=== PATIENT | male | born 1965 | race Caucasian/White ===

== ENCOUNTER 2021-10-31 10:29 | Emergency (ER) | payer SELFPAY ==
[~2021-10-31] VITALS: Ht 165.1 cm; Wt 83.9 kg
[2021-10-31 10:37] VITALS: BP 124/77
[2021-10-31] MEDS ORDERED: KETOROLAC 30 MG/ML VIAL IM ONE (11:15)
--- NOTE | 2021-10-31 11:15 | NUR ---
56 Y/O MALE BIB SELF FOR C/O LOWER BACK PAIN X 2 WEEKS. AOX4, ABLE TO MAKE NEEDS KNOWN. DENIES ANY TRAUMA TO BACK AT THIS TIME. NO BRUISING OR ANY DEFORMITIES NOTED. AMBULATES WITHOUT ASSISTANCE AND STEADILY. BACK IS NON-TENDER TO TOUCH AT THIS TIME. DENIES N/V/D/CP AT THIS TIME. PMH: DENIES ALLERGIES: DENIES HOME MEDS: DENIES
--- NOTE | 2021-10-31 12:25 | NUR ---
URINE DIP RESULTS SHOWN TO RENE AT THIS TIME.
--- NOTE | 2021-10-31 12:27 | NUR ---
RENE AT BEDSIDE TO CONSULT WITH PT AT THIS TIME.
[2021-10-31] MEDS ORDERED: IBUP-2213 PO (12:32)
[2021-10-31] MEDS ORDERED: LID5T TP (12:32)
[2021-10-31] MEDS ORDERED: ACET-8386 PO (12:32)
[2021-10-31 12:38] VITALS: BP 124/77
--- NOTE | 2021-10-31 12:38 | NUR ---
Patient discharged with v/s stable. Written and verbal after care instructions given and explained with teachback. Patient alert, oriented and verbalized understanding of instructions. Ambulatory with steady gait. All questions addressed prior to discharge. ID band removed. Patient advised to follow up with PMD. Rx of LIDODERM 5% PATCH/IBUPROFEN/HYDROCODONE/ACETAMINOPHEN given. Patient educated on indication of medication including possible reaction and side effects. Opportunity to ask questions provided and answered.
== END 2021-10-31 12:38 | disposition home or self-care (01) ==
LOC: MED 10:29
DX: S39.012A Strain of muscle, fascia and tendon of lower back, initial encounter (principal); R03.0 Elevated blood-pressure reading, without diagnosis of hypertension; Z79.899 Other long term (current) drug therapy; X58.XXXA Exposure to other specified factors, initial encounter; Y93.89 Activity, other specified; Y92.89 Other specified places as the place of occurrence of the external cause; Y99.8 Other external cause status
CPT/HCPCS: 72100; 81002; 96372; 99283; J1885

== ENCOUNTER 2021-11-11 08:00 | Emergency (ER) | payer MEDICAID ==
[~2021-11-11] VITALS: Ht 167.6 cm; Wt 84.4 kg
[~2021-11-11 08:00] MED LIST: ACET-8386 PO; IBUP-2213 PO; LID5T TP
[2021-11-11 08:10] VITALS: BP 159/62
--- NOTE | 2021-11-11 08:15 | NUR ---
56 y/o Male ambulatyed to bed 3, BIB self for sharp left testicular pain radiating to abd. c/o dysuria. Denies blood in urine. Denies recent trauma to testicular region. 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 Pmhx: chronic lower back pain Allergies: denies Home meds: ciprofloxacin
--- NOTE | 2021-11-11 08:20 | NUR ---
Pt ambulated to room 3
[2021-11-11 09:30] LABS: BASOPHILS % (AUTO) 0.6 % (0.0-2.0); EOSINOPHILS # (AUTO) 0.1 K/uL (0-0.4); EOSINOPHILS % (AUTO) 1.2 % (0.0-4.0); HEMOGLOBIN 14.8 g/dL (12.0-18.0); LYMPHOCYTES # (AUTO) 2.2 K/uL (2.0-11.5); LYMPHOCYTES % (AUTO) 38.7 % (20.5-51.1); MEAN CORPUSCULAR HEMOGLOBIN 32 pg (27-31); MEAN CORPUSCULAR HGB CONC 34 g/dL (33-37); MEAN CORPUSCULAR VOLUME 92.6 fL (80-94); MONOCYTES # (AUTO) 0.5 K/uL (0.8-1.0); MONOCYTES % (AUTO) 9.3 % (1.7-9.3); NEUTROPHILS # (AUTO) 2.9 K/uL (1.8-7.7); NEUTROPHILS % (AUTO) 50.2 % (42.2-75.2); PLATELET COUNT (AUTO) 236 K/uL (140-450); RED BLOOD CELL COUNT(AUTO) 4.64 MIL/uL (4.20-6.10); RED CELL DISTRIBUTION WIDTH 13.1 % (11.6-13.7); WHITE BLOOD COUNT (AUTO) 5.7 K/uL (4.8-10.8)
[2021-11-11 09:48] LABS: ALBUMIN 3.4 g/dL (3.4-5.0); CARBON DIOXIDE 27.5 mmol/L (21-32); CREATININE 0.8 mg/dL (0.6-1.3); POTASSIUM 3.5 mmol/L (3.5-5.1); TOTAL BILIRUBIN 0.8 mg/dL (0.0-1.0)
--- NOTE | 2021-11-11 09:50 | NUR ---
walked urine down to lab, gave to dairy laboratory technician Kita
[2021-11-11 12:34] LABS: APPEARANCE,URINE CLEAR (CLEAR); BILIRUBIN,URINE NEGATIVE (NEGATIVE); BLOOD, URINE NEGATIVE (NEGATIVE); COLOR,URINE YELLOW (YELLOW); LEUKOCYTE ESTERASE ,URINE NEGATIVE (NEGATIVE); NITRITE, URINE NEGATIVE (NEGATIVE); PH,URINE 6.5 (5.0-9.0); UGLUCOSE NEGATIVE (NEGATIVE)
[2021-11-11] MEDS ORDERED: CIPR500T4 PO (12:44)
[2021-11-11] MEDS ORDERED: IBUP-2213 PO (12:47)
[2021-11-11] MEDS ORDERED: AZITHROMYCIN 250 MG TAB PO ONE (12:50)
[2021-11-11] MEDS ORDERED: cefTRIAXone 250 MG in LIDOCAINE MPF 1% 0.9 ML IM ONE (12:50)
[2021-11-11] MEDS ORDERED: cefTRIAXone 250 MG VIAL ONE (13:19)
[2021-11-11] MEDS ORDERED: LIDOCAINE MPF 1% 0 ML ONE (13:19)
[2021-11-11 13:20] VITALS: BP 112/71
--- NOTE | 2021-11-11 13:20 | NUR ---
Patient discharged with v/s stable. Written and verbal after care instructions given ORCHITIS and explained. Patient alert, oriented and verbalized understanding of instructions. Ambulatory with steady gait. All questions addressed prior to discharge. ID band removed. Patient advised to follow up with PMD. Rx of CIPRO, AND IBUPROFEN given. Patient educated on indication of medication including possible reaction and side effects. Opportunity to ask questions provided and answered.
== END 2021-11-11 13:20 | disposition home or self-care (01) ==
LOC: MED 08:00
DX: N50.812 Left testicular pain (principal); N45.2 Orchitis; N43.3 Hydrocele, unspecified; N50.89 Other specified disorders of the male genital organs; Z90.49 Acquired absence of other specified parts of digestive tract; Z79.899 Other long term (current) drug therapy
CPT/HCPCS: 36415; 76870; 80053; 81003; 85025; 99284; Q0092; 87491; J0696; J2001

== ENCOUNTER 2023-08-01 16:50 | Emergency (ER) | payer SELFPAY ==
[~2023-08-01] VITALS: Ht 167.6 cm; Wt 72.6 kg
[~2023-08-01 16:50] MED LIST changes: -ACET-8386 PO; +ACET-8905 PO; +CIPR500T4 PO
[2023-08-01 17:06] VITALS: BP 141/86; PULSE 86; RESP 18; TEMP 98; O2SAT 98
[2023-08-01] MEDS ORDERED: NAPR-1003 PO (18:03)
[2023-08-01] MEDS ORDERED: CYCL-711 PO (18:03)
[2023-08-01] MEDS ORDERED: LID5T TP (18:03)
[2023-08-01] MEDS ORDERED: KETOROLAC 30 MG/ML VIAL IM ONE (18:05)
[2023-08-01 18:17] VITALS: BP 141/86; PULSE 86; RESP 18; TEMP 98; O2SAT 98
== END 2023-08-01 18:18 | disposition home or self-care (01) ==
LOC: MED 16:50
DX: M54.50 Low back pain, unspecified (principal); Z90.49 Acquired absence of other specified parts of digestive tract; Z79.899 Other long term (current) drug therapy; Z79.1 Long term (current) use of non-steroidal anti-inflammatories (NSAID); Z79.2 Long term (current) use of antibiotics
CPT/HCPCS: 96372; 99283; J1885